=== PATIENT | male | born 1950 | race Caucasian/White ===

== ENCOUNTER → 2017-10-17 | Outpatient (CLI) | payer BC ==
[~2017-10-17] VITALS: Ht 177.8 cm; Wt 98.4 kg
[~2017-10-17] MED LIST: ADVIL 200MG TA200 MG PO; CLARITIN10 MG PO; COZAAR100 MG PO; FLONASEALLERGY NS; LOW DOSE ASPIRI81 MG PO; VYTORIN 10 MG-41 TAB PO; ZYRTEC10 MG PO; vitorin
[2017-10-17 10:05] VITALS: BP 154/82; PULSE 74
[2017-10-17 11:00] VITALS: BP 169/93; PULSE 67
== END ==
LOC: COL.RAD 09:27
DX: M48.061 Spinal stenosis, lumbar region without neurogenic claudication (principal); M54.10 Radiculopathy, site unspecified; M47.9 Spondylosis, unspecified
CPT/HCPCS: J3301

== ENCOUNTER → 2017-12-26 | Outpatient (RCR) | payer BC ==
[~2017-12-26] MED LIST changes: +ZESTRIL 10MG10 MG PO
== END ==
LOC: WSPT → WSC 09-27 08:40 → WSPT 10-04 11:30 → WSC 12-01 08:00 → WSPT 12-06 08:00
DX: M48.061 Spinal stenosis, lumbar region without neurogenic claudication (principal); M41.86 Other forms of scoliosis, lumbar region; M43.16 Spondylolisthesis, lumbar region

== ENCOUNTER → 2017-12-27 | Outpatient (CLI) | payer BC ==
[~2017-12-27] VITALS: Ht 177.8 cm; Wt 95.9 kg
[2017-12-27 12:41] VITALS: BP 166/88; PULSE 63
[2017-12-27 14:14] VITALS: BP 151/89; PULSE 60
== END ==
LOC: COL.RAD 12:21
DX: M48.061 Spinal stenosis, lumbar region without neurogenic claudication (principal); M47.26 Other spondylosis with radiculopathy, lumbar region; Z98.890 Other specified postprocedural states; Z96.651 Presence of right artificial knee joint
CPT/HCPCS: J3301

== ENCOUNTER 2017-12-28 07:40 | Outpatient (RCR) | payer BC ==
[~2017-12-28 07:40] MED LIST changes: -ADVIL 200MG TA200 MG PO; +ADVIL200 MG PO; +ASPIRIN E.C. 8181 MG PO; -LOW DOSE ASPIRI81 MG PO
[2018-03-16] MEDS ORDERED: TURMERIC500 MG PO (09:57)
[2018-03-16] MEDS ORDERED: INSTAFLEX PO (09:58)
[2018-03-16] MEDS ORDERED: CENTRUM SILVER1 TA2 PO (09:59)
== END 2018-03-28 | disposition home or self-care (01) ==
LOC: WSPT
DX: M41.85 Other forms of scoliosis, thoracolumbar region (principal); M48.00 Spinal stenosis, site unspecified; M43.10 Spondylolisthesis, site unspecified

== ENCOUNTER → 2018-03-20 | Outpatient (CLI) | payer BC ==
[~2018-03-20] VITALS: Ht 175.3 cm; Wt 94.8 kg
[~2018-03-20] MED LIST changes: +CENTRUM SILVER1 TA2 PO; +INSTAFLEX PO; +TURMERIC500 MG PO
[2018-03-20 13:24] VITALS: BP 164/81; PULSE 74
[2018-03-20 14:10] VITALS: BP 179/88; PULSE 67
== END ==
LOC: COL.RAD 12:54
DX: M54.5 Low back pain (principal)
CPT/HCPCS: J3301

== ENCOUNTER → 2018-04-12 | Outpatient (CLI) | payer BC | LOC: COL.RAD 09:52 | DX: M43.16 Spondylolisthesis, lumbar region (principal); M47.26 Other spondylosis with radiculopathy, lumbar region; M51.16 Intervertebral disc disorders with radiculopathy, lumbar region; M41.86 Other forms of scoliosis, lumbar region; M48.061 Spinal stenosis, lumbar region without neurogenic claudication ==

== ENCOUNTER → 2019-08-03 | Outpatient (CLI) | payer BC | LOC: COL.RAD 14:46 | DX: S33.140A Subluxation of L4/L5 lumbar vertebra, initial encounter (principal); M48.061 Spinal stenosis, lumbar region without neurogenic claudication; N20.0 Calculus of kidney; Z98.1 Arthrodesis status ==

== ENCOUNTER → 2020-11-13 | Outpatient (REF) | LOC: WSOH 08:14 | DX: M96.1 Postlaminectomy syndrome, not elsewhere classified (principal); I10 Essential (primary) hypertension; E78.00 Pure hypercholesterolemia, unspecified; Z98.890 Other specified postprocedural states ==

== ENCOUNTER 2020-12-28 13:25 | Observation (INO) | payer BC ==
[~2020-12-28] VITALS: Ht 175.3 cm; Wt 90.9 kg
[2020-12-28 18:33] LABS: BASO # 0.1 (0.0-0.2); BASO % 0.8 % (0.0-2.0); EOS # 0.4 (0.0-0.7); EOS % 6.6 % (0-4.0); GRAN # 3.8 (1.4-6.5); GRAN % 59.7 % (42.2-75.2); HEMATOCRIT 44.3 % (42.0-52.0); HEMOGLOBIN 14.5 g/dl (13.5-18.0); LYMPH # 1.5 (1.2-3.4); LYMPH % 23.5 % (20.0-51.0); MEAN CELL VOLUME 97 fl (80.0-100.0); MEAN CORPUSCULAR HEMOGLOBIN 32 pg (27.0-31.0); MEAN CORPUSCULAR HGB CONC 33 g/dl (33.0-37.0); MEAN PLATELET VOLUME 9.4 fl (7.4-10.4); MONO # 0.6 (0.1-0.6); MONO % 9.1 % (1.7-9.3); PLATELET COUNT 274 K/mm3 (130-400); RED BLOOD COUNT 4.58 M/mm3 (4.20-5.60); REDCELL DISTRIBUTION WIDTH-CV 13.7 % (11.5-14.5)
[2020-12-28 18:40] LABS: ALBUMIN 4.4 gm/dL (3.5-5.0); BILIRUBIN,TOTAL 0.6 mg/dL (0.0-1.0); CALCIUM 9.8 mg/dL (8.4-10.2); CREATININE, serum 0.92 (0.66-1.25); POTASSIUM 3.9 mmol/L (3.4-5.0); TOTAL PROTEIN 7.2 gm/dL (6.4-8.2)
[2020-12-28 20:00] VITALS: BP 143/68; PULSE 79; TEMP 98.2
--- NOTE | 2020-12-28 20:13 | NUR ---
Arrived to room, awake, alert, oriented, respirations even and unlabored, skin warm and dry, denies pain, swelling noted to upper lip, COUNCIL -hearing aids in place, glasses.
[2020-12-29 00:55] VITALS: BP 151/72; PULSE 60; TEMP 98
[2020-12-29 03:56] VITALS: BP 147/76; PULSE 72; TEMP 97.5
[2020-12-29 05:06] VITALS: BP 147/76; PULSE 72; TEMP 97.5
--- NOTE | 2020-12-29 08:00 | NUR ---
PATIENT IS A&O. VSS. DENIES PAIN. NOTED UPPER LIP SWELLING HAS DECREASED. ACCORDING TO PATIENT "SWELLING IS HALF OF WHAT IT WAS". NO C/O N/V. AM MEDS GIVEN. HEAD TO TOE ASSESSMENT WNL. INDEPENDENT IN ROOM. CALL LIGHT IN REACH.
[2020-12-29] MEDS ORDERED: NORVASC 5MG5 MG/TAB PO (09:16)
--- NOTE | 2020-12-29 10:40 | NUR ---
Initial visit; Patient thanked Mobile Manager for looking in on him, listening and offering prayer and God's blessings.
--- NOTE | 2020-12-29 11:00 | NUR ---
PATIENT DISCHARGING HOME VIA AMBULATORY WITH TO PERSONAL VEHICLE. GAVE DISCHARGE INSTRUCTIONS, E-SCRIPT SENT, AND F/U APT DISCUSSED. NO IV SITE. PATIENT IS DRESSED AND PACKED. ESCORTED OUT
== END 2020-12-29 11:00 | disposition home or self-care (01) ==
LOC: COL.ER 13:25 → MEDICAL 18:18
PROVIDERS: Student in an Organized Health Care Education/Training Program; ADMIT Family Medicine
DX: T78.3XXA Angioneurotic edema, initial encounter (principal); I10 Essential (primary) hypertension; E78.5 Hyperlipidemia, unspecified; Z79.82 Long term (current) use of aspirin; Z79.51 Long term (current) use of inhaled steroids; Z88.0 Allergy status to penicillin
CPT/HCPCS: 99223-AI; G0378; J0171; J1650; J2930; J7120